=== PATIENT | male | born 1960 | race Caucasian/White ===

== ENCOUNTER 2016-12-19 09:50 | Inpatient (IN) | payer BC ==
[~2016-12-19] VITALS: Ht 193 cm; Wt 85.7 kg
[2016-12-19 09:50] VITALS: BP_SYST 163
[2016-12-19] MEDS ORDERED: NS 500 ML IV SCH (09:59)
[2016-12-19] MEDS ORDERED: IPRATROPIUM/ALBUTEROL SULFATE 3 ML AMPUL.NEB ONE (10:10)
[2016-12-19 10:28] LABS: BASOPHILS # (AUTO) 0.1 K/uL (0.0-0.2); BASOPHILS % (AUTO) 1.1 % (0.0-2.0); EOSINOPHILS # (AUTO) 1.9 K/uL (0.0-0.4); EOSINOPHILS % (AUTO) 17.7 % (0.0-4.0); HEMATOCRIT 44.6 % (36-54); HEMOGLOBIN 14.1 g/dL (14.0-18.0); LYMPHOCYTES # (AUTO) 1.8 K/uL (1.0-5.5); LYMPHOCYTES % (AUTO) 16.4 % (20.5-51.5); MEAN CORPUSCULAR HEMOGLOBIN 29 pg (27-31); MEAN CORPUSCULAR HGB CONC 32 % (32-36); MEAN CORPUSCULAR VOLUME 91 fL (79.0-98.0); MONOCYTES # (AUTO) 0.8 K/uL (0.0-1.0); MONOCYTES % (AUTO) 7.2 % (1.7-9.3); NEUTROPHILS # (AUTO) 6.1 K/uL (1.8-7.7); NEUTROPHILS % (AUTO) 57.6 % (40.0-70.0); PLATELET COUNT (AUTO) 235 K/uL (130-430); RED BLOOD CELL COUNT(AUTO) 4.93 MIL/uL (4.2-6.2); RED CELL DISTRIBUTION WIDTH 13.2 % (9.0-15.0); WHITE BLOOD COUNT (AUTO) 10.7 K/uL (4.8-10.8)
[2016-12-19 10:33] LABS: CALCIUM 9.7 mg/dL (8.4-11.0); CREATININE 0.97 mg/dL (0.55-1.30); POTASSIUM 4.8 mmol/L (3.5-5.1)
[2016-12-19 10:45] LABS: ALBUMIN 3.6 g/dL (3.4-4.8); TOTAL BILIRUBIN 0.7 mg/dL (0.0-1.0)
[2016-12-19 11:48] LABS: BILIRUBIN,URINE 1+ (NEGATIVE); BLOOD, URINE TRACE (NEGATIVE); CLARITY/URINE CLEAR (CLEAR); COLOR,URINE YELLOW (YELLOW); GLUCOSE,URINE NEGATIVE (NEGATIVE); KETONES,URINE TRACE (NEGATIVE); LEUKOCYTE ESTERASE ,URINE NEGATIVE (NEGATIVE); NITRITE, URINE NEGATIVE (NEGATIVE); PROTEIN URINE 2+ (NEGATIVE)
[2016-12-19 11:52] LABS: BACTERIA,URINE RARE /HPF (None Seen); RBC,URINE 0-3 /HPF (0-3); WBC,URINE 0-3 /HPF (0-3)
[2016-12-19] MEDS ORDERED: ALBUTEROL SULFATE 0.083% 2.5 MG/3 ML VIAL.NEB INH PRN (12:30)
[2016-12-19] MEDS ORDERED: IPRATROPIUM BROM 0.5 MG/2.5 ML VIAL.NEB (ATROVENT) INH PRN (12:30)
[2016-12-19 13:13] VITALS: BP_SYST 136
[2016-12-19 13:15] VITALS: BP_SYST 136
[2016-12-19] MEDS ORDERED: methylPREDNISolone SOD SUCC/PF 62.5 MG/ML VIAL IVP ONE (13:15)
[2016-12-19] MEDS: ALBUTEROL SULFATE 0.083% 2.5 MG/3 ML VIAL.NEB INH SCH ×3 (15:21→23:08)
[2016-12-19] MEDS: IPRATROPIUM BROM 0.5 MG/2.5 ML VIAL.NEB (ATROVENT) INH SCH ×3 (15:21→23:08)
[2016-12-19 16:18] VITALS: BP_SYST 147
[2016-12-19 19:38] VITALS: BP_SYST 142
[2016-12-19] MEDS: methylPREDNISolone SOD SUCC/PF 62.5 MG/ML VIAL IVP SCH (21:12)
[2016-12-19 23:30] VITALS: BP_SYST 125
[2016-12-20] VITALS (8 sets, daily range): BP systolic 128–155
[2016-12-20] MEDS: ALBUTEROL SULFATE 0.083% 2.5 MG/3 ML VIAL.NEB INH SCH ×6 (03:27→23:27)
[2016-12-20] MEDS: IPRATROPIUM BROM 0.5 MG/2.5 ML VIAL.NEB (ATROVENT) INH SCH ×6 (03:27→23:27)
[2016-12-20] MEDS: methylPREDNISolone SOD SUCC/PF 62.5 MG/ML VIAL IVP SCH ×3 (05:38→22:17)
[2016-12-20 06:49] LABS: BASOPHILS % (AUTO) 0.2 % (0.0-2.0); EOSINOPHILS % (AUTO) 0.1 % (0.0-4.0); HEMATOCRIT 41.3 % (36-54); HEMOGLOBIN 13.2 g/dL (14.0-18.0); LYMPHOCYTES # (AUTO) 0.5 K/uL (1.0-5.5); LYMPHOCYTES % (AUTO) 9.3 % (20.5-51.5); MEAN CORPUSCULAR HEMOGLOBIN 29 pg (27-31); MEAN CORPUSCULAR HGB CONC 32 % (32-36); MEAN CORPUSCULAR VOLUME 91 fL (79.0-98.0); MONOCYTES # (AUTO) 0.1 K/uL (0.0-1.0); NEUTROPHILS # (AUTO) 5.1 K/uL (1.8-7.7); NEUTROPHILS % (AUTO) 89.4 % (40.0-70.0); PLATELET COUNT (AUTO) 210 K/uL (130-430); RED BLOOD CELL COUNT(AUTO) 4.54 MIL/uL (4.2-6.2); RED CELL DISTRIBUTION WIDTH 13.1 % (9.0-15.0)
[2016-12-20 06:51] LABS: CALCIUM 9.6 mg/dL (8.4-11.0); CREATININE 0.83 mg/dL (0.55-1.30); POTASSIUM 4.9 mmol/L (3.5-5.1); TOTAL BILIRUBIN 0.4 mg/dL (0.0-1.0)
[2016-12-20 07:05] LABS: WHITE BLOOD COUNT (AUTO) 5.7 K/uL (4.8-10.8)
[2016-12-20] MEDS: LEVOFLOXACIN 500 MG/D5W 100 ML IV SCH (11:08)
[2016-12-21] MEDS: ALBUTEROL SULFATE 0.083% 2.5 MG/3 ML VIAL.NEB INH SCH ×6 (03:43→23:12)
[2016-12-21] MEDS: IPRATROPIUM BROM 0.5 MG/2.5 ML VIAL.NEB (ATROVENT) INH SCH ×6 (03:43→23:11)
[2016-12-21 04:35] VITALS: BP_SYST 124
[2016-12-21] MEDS: methylPREDNISolone SOD SUCC/PF 62.5 MG/ML VIAL IVP SCH ×3 (05:57→23:05)
[2016-12-21 08:00] VITALS: BP_SYST 136
[2016-12-21] MEDS: FLUTICASONE/VILANTEROL 1 EACH BLST.W.DEV INH SCH (11:15)
[2016-12-21 12:32] VITALS: BP_SYST 131
[2016-12-21] MEDS: LEVOFLOXACIN 500 MG/D5W 100 ML IV SCH (12:41)
[2016-12-21 16:34] VITALS: BP_SYST 124
[2016-12-21] MEDS: MONTELUKAST 10 MG TABLET PO SCH (17:45)
[2016-12-21 21:10] VITALS: BP_SYST 127
[2016-12-21 21:11] VITALS: BP_SYST 127
[2016-12-22] VITALS (7 sets, daily range): BP systolic 115–138
[2016-12-22] MEDS: ALBUTEROL SULFATE 0.083% 2.5 MG/3 ML VIAL.NEB INH SCH ×5 (03:10→19:41)
[2016-12-22] MEDS: IPRATROPIUM BROM 0.5 MG/2.5 ML VIAL.NEB (ATROVENT) INH SCH ×5 (03:10→19:41)
[2016-12-22] MEDS: methylPREDNISolone SOD SUCC/PF 62.5 MG/ML VIAL IVP SCH (05:46)
[2016-12-22] MEDS: FLUTICASONE/VILANTEROL 1 EACH BLST.W.DEV INH SCH (08:44)
[2016-12-22] MEDS: LEVOFLOXACIN 500 MG/D5W 100 ML IV SCH (11:48)
[2016-12-22] MEDS: MONTELUKAST 10 MG TABLET PO SCH (18:20)
[2016-12-22] MEDS: methylPREDNISolone SOD SUCC 40 MG/ML VIAL IVP SCH (21:02)
[2016-12-23 00:13] VITALS: BP_SYST 118
[2016-12-23] MEDS: ALBUTEROL SULFATE 0.083% 2.5 MG/3 ML VIAL.NEB INH SCH ×4 (00:26→16:35)
[2016-12-23] MEDS: IPRATROPIUM BROM 0.5 MG/2.5 ML VIAL.NEB (ATROVENT) INH SCH ×4 (00:26→16:35)
[2016-12-23 04:08] VITALS: BP_SYST 122
[2016-12-23 08:00] VITALS: BP_SYST 133
[2016-12-23] MEDS: methylPREDNISolone SOD SUCC 40 MG/ML VIAL IVP SCH (08:52)
[2016-12-23] MEDS: FLUTICASONE/VILANTEROL 1 EACH BLST.W.DEV INH SCH (08:52)
[2016-12-23 11:07] VITALS: BP_SYST 130
[2016-12-23] MEDS: LEVOFLOXACIN 500 MG/D5W 100 ML IV SCH (11:22)
[2016-12-23 11:57] VITALS: BP_SYST 130
[2016-12-23 12:18] VITALS: BP_SYST 131
[2016-12-23 14:11] LABS: IMMUNOGLOBULIN G, SERUM 1690 mg/dL (700-1600)
[2016-12-23 14:12] LABS: IMMUNOGLOBULIN E,TOTAL 1991 IU/mL (0-100)
== END 2016-12-23 12:57 | disposition home or self-care (01) | DRG 193 ==
LOC: SED 09:50 → STU 11:50 → SMU 12-20 10:23
PROVIDERS: ADMIT Internal Medicine Hospice and Palliative Medicine; ATTEND Internal Medicine Hospice and Palliative Medicine
DX: J18.9 Pneumonia, unspecified organism (principal); J96.01 Acute respiratory failure with hypoxia; J45.901 Unspecified asthma with (acute) exacerbation; Z88.0 Allergy status to penicillin
CPT/HCPCS: 36415; 36600; 71010; 71250-TC; 80053; 81000-TC; 82784; 82785; 82803-TC; 83605; 84484; 85025; 87070-TC; 87081; 87205-TC; 93005; 94640; 94760; 96365; 99285; J1030; J1956; J2930; J7040

== ENCOUNTER 2017-01-26 16:36 | Outpatient (CLI) | payer BC | END 2017-01-26 19:26 | disposition home or self-care (01) | LOC: SRD 16:36 | PROVIDERS: ATTEND Specialist | DX: J18.9 Pneumonia, unspecified organism (principal); J44.9 Chronic obstructive pulmonary disease, unspecified | CPT/HCPCS: 71020-TC ==

== ENCOUNTER 2017-03-10 09:36 | Outpatient (CLI) | payer BC | END 2017-03-10 19:35 | disposition home or self-care (01) | LOC: SCT 09:36 | PROVIDERS: ATTEND Specialist | DX: J18.9 Pneumonia, unspecified organism (principal); J47.0 Bronchiectasis with acute lower respiratory infection | CPT/HCPCS: 71250-TC ==

== ENCOUNTER 2020-01-05 06:57 | Emergency (ER) | payer BC ==
[~2020-01-05] VITALS: Ht 182.9 cm; Wt 90.7 kg
[2020-01-05 07:00] VITALS: BP_SYST 141
--- NOTE | 2020-01-05 07:00 | NUR ---
BROUGHT BACK TO BED #5 VIA WHEELCHAIR, PLACED IN ROOM, REPORT GIVEN TO ASHLEIGH
--- NOTE | 2020-01-05 07:10 | NUR ---
pt arrvies from home after throwing out is back last night. Pt reports doing a twisting motion when he felt a stabbing like pain on his lower back. No other c/o at the moment
[2020-01-05] MEDS ORDERED: methocarbamoL 500 MG TABLET PO ONE (07:15)
[2020-01-05] MEDS ORDERED: KETOROLAC TROMETHAMINE 60 MG/2 ML VIAL IM ONE (07:15)
--- NOTE | 2020-01-05 07:18 | NUR ---
ER at bedside examining patient.
--- NOTE | 2020-01-05 07:24 | NUR ---
Medicated the pt w/ Toradol and Robaxin. Will reassess
--- NOTE | 2020-01-05 07:30 | NUR ---
Patient given written and verbal discharge instructions and verbalizes understanding. ER MD discussed with patient the results and treatment provided. Patient in stable condition. ID arm band removed. Rx of Ibuprofen and Methocardamol given. Patient educated on pain management and to follow up with PMD. Pain Scale 3/10. Opportunity for questions provided and answered. Medication side effect fact sheet provided.
[2020-01-05 07:32] VITALS: BP_SYST 141
== END 2020-01-05 07:30 | disposition home or self-care (01) ==
LOC: SED 06:57
DX: S33.5XXA Sprain of ligaments of lumbar spine, initial encounter (principal); J44.9 Chronic obstructive pulmonary disease, unspecified; Z88.0 Allergy status to penicillin; X50.1XXA Overexertion from prolonged static or awkward postures, initial encounter; Y93.89 Activity, other specified; Y92.89 Other specified places as the place of occurrence of the external cause; Y99.8 Other external cause status
CPT/HCPCS: 99283; J1885

== ENCOUNTER 2020-05-08 15:58 | Inpatient (IN) | payer BC, SELFPAY ==
[~2020-05-08] VITALS: Ht 182.9 cm; Wt 84.8 kg
[2020-05-08] MEDS: POTASSIUM CHLORIDE 20 MEQ in D5/0.45 NS 1,000 ML IV SCH ×2
[~2020-05-08 15:58] MED LIST: VANCOMYCIN HCL 1,500 MG in NS 250 ML IV ONE
[2020-05-08 16:05] VITALS: BP_SYST 117
[2020-05-08] MEDS ORDERED: VANCOMYCIN HCL 1,000 MG in NS 250 ML IV ONE (16:30)
[2020-05-08] MEDS ORDERED: DEXAMETHASONE SOD PHOSPHATE 10 MG/ML VIAL IVP ONE (16:30)
[2020-05-08] MEDS ORDERED: VANCOMYCIN HCL 1000 MG/VIAL IV ONE (17:20)
[2020-05-08 17:39] LABS: BASOPHILS % (AUTO) 0.5 % (0.0-2.0); EOSINOPHILS # (AUTO) 0.4 K/uL (0.0-0.4); EOSINOPHILS % (AUTO) 6.1 % (0.0-4.0); HEMATOCRIT 42.4 % (36-54); HEMOGLOBIN 14.2 g/dL (14.0-18.0); LYMPHOCYTES # (AUTO) 0.6 K/uL (1.0-5.5); LYMPHOCYTES % (AUTO) 8.2 % (20.5-51.5); MEAN CORPUSCULAR HEMOGLOBIN 30 pg (27-31); MEAN CORPUSCULAR HGB CONC 34 % (32-36); MEAN CORPUSCULAR VOLUME 90 fL (79.0-98.0); MONOCYTES # (AUTO) 0.4 K/uL (0.0-1.0); MONOCYTES % (AUTO) 5.7 % (1.7-9.3); NEUTROPHILS # (AUTO) 5.8 K/uL (1.8-7.7); NEUTROPHILS % (AUTO) 79.5 % (40.0-70.0); PLATELET COUNT (AUTO) 208 K/uL (130-430); RED BLOOD CELL COUNT(AUTO) 4.73 MIL/uL (4.2-6.2); RED CELL DISTRIBUTION WIDTH 13.4 % (9.0-15.0); WHITE BLOOD COUNT (AUTO) 7.3 K/uL (4.8-10.8)
[2020-05-08 17:43] LABS: CALCIUM 9.2 mg/dL (8.4-11.0); CREATININE 0.9 mg/dL (0.55-1.30); POTASSIUM 4.6 mmol/L (3.5-5.1)
[2020-05-08 17:49] LABS: TOTAL BILIRUBIN 0.4 mg/dL (0.0-1.0)
[2020-05-08 20:10] VITALS: BP_SYST 130
[2020-05-08] MEDS ORDERED: CARV25TA55 PO (20:21)
[2020-05-08] MEDS ORDERED: BUDE6HFA INH (20:21)
[2020-05-08] MEDS ORDERED: FURO-150 PO (20:21)
[2020-05-08] MEDS ORDERED: ACETAMINOPHEN 325 MG TABLET PO PRN (22:00)
[2020-05-08] MEDS ORDERED: ALBUTEROL MDI INHALATION 8 GM INH INH PRN (22:15)
[2020-05-09] MEDS ORDERED: KCL 20 mEq in D5/0.45NS 1000mL 1,000 ML IV ONE (00:25)
[2020-05-09] MEDS ORDERED: AZITHROMYCIN 500 MG/VIAL (ZITHROMAX) IV ONE (00:57)
[2020-05-09] MEDS ORDERED: MORPHINE 2 MG/ML INJ. SYRINGE ONE (00:58)
[2020-05-09] MEDS ORDERED: ALBUTEROL SULFATE 0.083% 2.5 MG/3 ML VIAL.NEB INH SCH (01:00)
[2020-05-09 04:09] VITALS: BP_SYST 130
[2020-05-09 04:19] VITALS: BP_SYST 133
[2020-05-09] MEDS ORDERED: BUDESONIDE 0.5 MG/2 ML AMPUL.NEB INH SCH (07:00)
[2020-05-09 07:38] LABS: BASOPHILS % (AUTO) 0.5 % (0.0-2.0); HEMOGLOBIN 14.4 g/dL (14.0-18.0); LYMPHOCYTES # (AUTO) 0.6 K/uL (1.0-5.5); MEAN CORPUSCULAR HEMOGLOBIN 30 pg (27-31); MEAN CORPUSCULAR HGB CONC 33 % (32-36); MEAN CORPUSCULAR VOLUME 91 fL (79.0-98.0); MONOCYTES # (AUTO) 0.1 K/uL (0.0-1.0); MONOCYTES % (AUTO) 1.5 % (1.7-9.3); NEUTROPHILS # (AUTO) 3.6 K/uL (1.8-7.7); PLATELET COUNT (AUTO) 190 K/uL (130-430); RED BLOOD CELL COUNT(AUTO) 4.83 MIL/uL (4.2-6.2); RED CELL DISTRIBUTION WIDTH 13.5 % (9.0-15.0); WHITE BLOOD COUNT (AUTO) 4.3 K/uL (4.8-10.8)
[2020-05-09 07:57] LABS: CALCIUM 9.3 mg/dL (8.4-11.0); CREATININE 0.71 mg/dL (0.55-1.30); POTASSIUM 5.1 mmol/L (3.5-5.1)
[2020-05-09 08:00] VITALS: BP_SYST 117
[2020-05-09] MEDS: POTASSIUM CHLORIDE 20 MEQ in D5/0.45 NS 1,000 ML IV SCH ×4 (08:13→21:41)
[2020-05-09 08:44] LABS: C-REACTIVE PROTEIN QUANT 6.4 mg/dL (0-0.5)
[2020-05-09] MEDS: CHOLECALCIFEROL (VITAMIN D3) 5,000 UNIT TABLET PO SCH (09:00)
[2020-05-09] MEDS ORDERED: BUDESONIDE/FORMOTEROL 160-4.5 mCg, 6 GM INHALER INH SCH (09:00)
[2020-05-09] MEDS: ASCORBIC ACID 500 MG TABLET PO SCH (10:33)
[2020-05-09] MEDS: CARVEDILOL 25 MG TABLET (COREG) PO SCH ×2 (10:33→21:15)
[2020-05-09] MEDS: ENOXAPARIN SODIUM 40 MG/0.4 ML SYRINGE SUBCUT SCH ×3 (10:34→21:00)
[2020-05-09] MEDS: ALBUTEROL MDI INHALATION 8 GM INH INH SCH ×2 (12:00→19:35)
[2020-05-09] MEDS ORDERED: ALBUTEROL MDI INHALATION 8 GM INH INH SCH (13:00)
[2020-05-09 13:01] VITALS: BP_SYST 108
[2020-05-09] MEDS: VANCOMYCIN HCL 1,000 MG in NS 250 ML IV SCH ×2 (13:22→23:00)
[2020-05-09 16:25] VITALS: BP_SYST 113
[2020-05-09] MEDS ORDERED: BUDESONIDE 0.5 MG/2 ML AMPUL.NEB INH PRN (19:00)
[2020-05-09 20:00] VITALS: BP_SYST 134
[2020-05-09] MEDS: DEXAMETHASONE SOD PHOSPHATE 10 MG/ML VIAL IVP SCH ×2 (21:15)
[2020-05-09] MEDS: AZITHROMYCIN 500 MG in NS 250 ML IV SCH ×3 (21:15)
[2020-05-10] VITALS: BP_SYST 107
[2020-05-10] MEDS: VANCOMYCIN HCL 1,000 MG in NS 250 ML IV SCH (06:10)
[2020-05-10] MEDS: ALBUTEROL MDI INHALATION 8 GM INH INH SCH ×3 (07:20→19:25)
[2020-05-10 07:58] LABS: BASOPHILS % (AUTO) 0.1 % (0.0-2.0); HEMATOCRIT 43.2 % (36-54); LYMPHOCYTES # (AUTO) 0.7 K/uL (1.0-5.5); LYMPHOCYTES % (AUTO) 8.6 % (20.5-51.5); MEAN CORPUSCULAR HEMOGLOBIN 30 pg (27-31); MEAN CORPUSCULAR HGB CONC 33 % (32-36); MEAN CORPUSCULAR VOLUME 92 fL (79.0-98.0); MONOCYTES # (AUTO) 0.2 K/uL (0.0-1.0); MONOCYTES % (AUTO) 2.2 % (1.7-9.3); NEUTROPHILS # (AUTO) 7.4 K/uL (1.8-7.7); NEUTROPHILS % (AUTO) 89.1 % (40.0-70.0); PLATELET COUNT (AUTO) 206 K/uL (130-430); RED BLOOD CELL COUNT(AUTO) 4.68 MIL/uL (4.2-6.2); RED CELL DISTRIBUTION WIDTH 13.7 % (9.0-15.0); WHITE BLOOD COUNT (AUTO) 8.3 K/uL (4.8-10.8)
[2020-05-10 08:28] LABS: ALBUMIN 2.6 g/dL (3.4-4.8); CREATININE 0.73 mg/dL (0.55-1.30); POTASSIUM 5.2 mmol/L (3.5-5.1); TOTAL BILIRUBIN 0.3 mg/dL (0.0-1.0)
[2020-05-10 08:45] VITALS: BP_SYST 132
[2020-05-10] MEDS ORDERED: FAMOTIDINE 20 MG TABLET ONE ×2 (09:07→21:40)
[2020-05-10] MEDS: ENOXAPARIN SODIUM 40 MG/0.4 ML SYRINGE SUBCUT SCH ×2 (09:08→21:45)
[2020-05-10] MEDS: CARVEDILOL 25 MG TABLET (COREG) PO SCH ×2 (09:09→21:45)
[2020-05-10] MEDS: ASCORBIC ACID 500 MG TABLET PO SCH (09:09)
[2020-05-10] MEDS: FAMOTIDINE 20 MG TABLET PO SCH ×2 (09:09→21:45)
[2020-05-10] MEDS: CHOLECALCIFEROL (VITAMIN D3) 5,000 UNIT TABLET PO SCH (09:10)
[2020-05-10] MEDS: AZITHROMYCIN 500 MG in D5W 250 ML IV SCH (12:24)
[2020-05-10] MEDS: NACL 0.9% 1,000 ML IV SCH (13:00)
[2020-05-10] MEDS: VANCOMYCIN HCL 1,000 MG in D5W 250 ML IV SCH ×2 (13:00→21:45)
[2020-05-10 18:18] VITALS: BP_SYST 113
[2020-05-10 20:00] VITALS: BP_SYST 132
[2020-05-10] MEDS: DEXAMETHASONE SOD PHOSPHATE 10 MG/ML VIAL IVP SCH (21:45)
[2020-05-11] VITALS: BP_SYST 127
[2020-05-11] MEDS: ALBUTEROL MDI INHALATION 8 GM INH INH SCH ×4 (01:46→19:35)
[2020-05-11] MEDS: NACL 0.9% 1,000 ML IV SCH ×2 (02:10→21:00)
[2020-05-11] MEDS: VANCOMYCIN HCL 1,000 MG in D5W 250 ML IV SCH (06:08)
[2020-05-11 08:15] VITALS: BP_SYST 129
[2020-05-11] MEDS: ASCORBIC ACID 500 MG TABLET PO SCH (09:27)
[2020-05-11] MEDS: CHOLECALCIFEROL (VITAMIN D3) 5,000 UNIT TABLET PO SCH (09:27)
[2020-05-11] MEDS: CARVEDILOL 25 MG TABLET (COREG) PO SCH ×2 (09:27→21:00)
[2020-05-11] MEDS: ENOXAPARIN SODIUM 40 MG/0.4 ML SYRINGE SUBCUT SCH ×2 (09:28→21:00)
[2020-05-11 09:29] LABS: ALBUMIN 2.7 g/dL (3.4-4.8); CALCIUM 9.5 mg/dL (8.4-11.0); CREATININE 0.79 mg/dL (0.55-1.30); POTASSIUM 5.1 mmol/L (3.5-5.1); TOTAL BILIRUBIN 0.3 mg/dL (0.0-1.0)
[2020-05-11] MEDS: FAMOTIDINE 20 MG TABLET PO SCH ×2 (09:29→21:00)
[2020-05-11] MEDS ORDERED: FAMOTIDINE 20 MG TABLET ONE ×2 (09:30→20:56)
[2020-05-11] MEDS ORDERED: IVERMECTIN 3 MG TABLET PO ONE (09:45)
[2020-05-11] MEDS: AZITHROMYCIN 500 MG in D5W 250 ML IV SCH (13:30)
[2020-05-11 13:55] LABS: BASOPHILS % (AUTO) 0.1 % (0.0-2.0); HEMATOCRIT 44.3 % (36-54); HEMOGLOBIN 14.1 g/dL (14.0-18.0); LYMPHOCYTES # (AUTO) 0.7 K/uL (1.0-5.5); LYMPHOCYTES % (AUTO) 9.5 % (20.5-51.5); MEAN CORPUSCULAR HEMOGLOBIN 30 pg (27-31); MEAN CORPUSCULAR HGB CONC 32 % (32-36); MEAN CORPUSCULAR VOLUME 93 fL (79.0-98.0); MONOCYTES # (AUTO) 0.1 K/uL (0.0-1.0); MONOCYTES % (AUTO) 1.9 % (1.7-9.3); NEUTROPHILS # (AUTO) 6.5 K/uL (1.8-7.7); NEUTROPHILS % (AUTO) 88.5 % (40.0-70.0); PLATELET COUNT (AUTO) 179 K/uL (130-430); RED BLOOD CELL COUNT(AUTO) 4.77 MIL/uL (4.2-6.2); RED CELL DISTRIBUTION WIDTH 13.7 % (9.0-15.0); WHITE BLOOD COUNT (AUTO) 7.3 K/uL (4.8-10.8)
[2020-05-11 20:00] VITALS: BP_SYST 135
[2020-05-11] MEDS: CEFEPIME 0.5 GM in D5W 50 ML IV SCH (21:00)
[2020-05-11] MEDS: DEXAMETHASONE SOD PHOSPHATE 10 MG/ML VIAL IVP SCH (22:00)
[2020-05-12] VITALS: BP_SYST 129
[2020-05-12] MEDS: ALBUTEROL MDI INHALATION 8 GM INH INH SCH ×4 (01:00→19:30)
[2020-05-12] MEDS: NACL 0.9% 1,000 ML IV SCH ×2 (04:00→11:34)
[2020-05-12] MEDS: CEFEPIME 0.5 GM in D5W 50 ML IV SCH ×2 (08:45→21:08)
[2020-05-12] MEDS: CHOLECALCIFEROL (VITAMIN D3) 5,000 UNIT TABLET PO SCH (08:46)
[2020-05-12] MEDS: ENOXAPARIN SODIUM 40 MG/0.4 ML SYRINGE SUBCUT SCH ×2 (08:46→21:09)
[2020-05-12] MEDS: ASCORBIC ACID 500 MG TABLET PO SCH (08:46)
[2020-05-12] MEDS: FAMOTIDINE 20 MG TABLET PO SCH ×2 (08:46→21:09)
[2020-05-12] MEDS: CARVEDILOL 25 MG TABLET (COREG) PO SCH ×2 (08:46→21:11)
[2020-05-12 09:39] VITALS: BP_SYST 137
[2020-05-12] MEDS: AZITHROMYCIN 500 MG in D5W 250 ML IV SCH (11:34)
[2020-05-12 12:00] VITALS: BP_SYST 126
[2020-05-12 16:35] VITALS: BP_SYST 119
[2020-05-12 19:58] VITALS: BP_SYST 133
[2020-05-12] MEDS ORDERED: FAMOTIDINE 20 MG TABLET ONE (20:59)
[2020-05-12] MEDS: DEXAMETHASONE SOD PHOSPHATE 10 MG/ML VIAL IVP SCH (21:09)
[2020-05-13] MEDS: ALBUTEROL MDI INHALATION 8 GM INH INH SCH (01:00)
[2020-05-13] MEDS: NACL 0.9% 1,000 ML IV SCH (05:45)
[2020-05-13] MEDS: CHOLECALCIFEROL (VITAMIN D3) 5,000 UNIT TABLET PO SCH (08:00)
[2020-05-13] MEDS: FAMOTIDINE 20 MG TABLET PO SCH (08:00)
[2020-05-13] MEDS: CARVEDILOL 25 MG TABLET (COREG) PO SCH (08:00)
[2020-05-13] MEDS: ENOXAPARIN SODIUM 40 MG/0.4 ML SYRINGE SUBCUT SCH (08:00)
[2020-05-13] MEDS: ASCORBIC ACID 500 MG TABLET PO SCH (08:00)
[2020-05-13] MEDS: CEFEPIME 0.5 GM in D5W 50 ML IV SCH (08:00)
[2020-05-13] MEDS ORDERED: FAMOTIDINE 20 MG TABLET ONE (08:19)
[2020-05-13 08:37] VITALS: BP_SYST 145
[2020-05-13 11:47] VITALS: BP_SYST 136
[2020-05-13] MEDS: AZITHROMYCIN 500 MG in D5W 250 ML IV SCH (11:47)
[2020-05-13] MEDS ORDERED: DEC4 PO (13:47)
[2020-05-13] MEDS ORDERED: DOXY100T2 PO (13:47)
[2020-05-13] MEDS ORDERED: APIX2.5T PO (13:48)
[2020-05-13] MEDS ORDERED: ZINC220T4 PO (13:49)
[2020-05-13] MEDS ORDERED: Vitamin D PO (13:49)
[2020-05-13 16:36] VITALS: BP_SYST 140
[2020-05-13 20:00] VITALS: BP_SYST 134
[2020-05-13 21:37] VITALS: BP_SYST 134
== END 2020-05-13 19:14 | disposition home or self-care (01) | DRG 177 ==
LOC: SED 15:58 → SMU 18:33
PROVIDERS: ADMIT Family Medicine; ATTEND Family Medicine
DX: U07.1 COVID-19 (principal); J12.82 Pneumonia due to coronavirus disease 2019; J96.01 Acute respiratory failure with hypoxia; D72.810 Lymphocytopenia; I10 Essential (primary) hypertension; J45.909 Unspecified asthma, uncomplicated; Z88.0 Allergy status to penicillin
CPT/HCPCS: 36415; 36600; 71045; 80048; 80053; 80202-TC; 82803-TC; 83880; 84484; 85025; 85379; 86140; 86900; 86901; 93005; 94640; 94664; 94760; J0456; J0692; J1100; J1650; J2270; J3370; J3480; J7030; J7050; J7060

== ENCOUNTER 2023-02-13 17:20 | Emergency (ER) | payer BC ==
[~2023-02-13] VITALS: Ht 182.9 cm; Wt 90.7 kg
[~2023-02-13 17:20] MED LIST changes: +APIX2.5T PO; +BUDE6HFA INH; +CARV25TA55 PO; +DEC4 PO; +DOXY100T2 PO; +FURO-150 PO; -VANCOMYCIN HCL 1,500 MG in NS 250 ML IV ONE; +Vitamin D PO; +ZINC220T4 PO
[2023-02-13 17:22] VITALS: BP_SYST 163; PULSE 92; RESP 24; TEMP 97.5; O2SAT 90
[2023-02-13] MEDS ORDERED: methylPREDNISolone SOD SUCC/PF 62.5 MG/ML VIAL IVP ONE (18:45)
[2023-02-13] MEDS ORDERED: IPRATROPIUM/ALBUTEROL SULFATE 3 ML AMPUL.NEB (DUONEB) INH ONE (18:45)
[2023-02-13 19:26] LABS: BASOPHILS % (AUTO) 0.6 % (0.0-2.0); EOSINOPHILS # (AUTO) 0.3 K/uL (0.0-0.4); HEMATOCRIT 37.1 % (36-54); HEMOGLOBIN 11.7 g/dL (14.0-18.0); LYMPHOCYTES % (AUTO) 15.5 % (20.5-51.5); MEAN CORPUSCULAR HEMOGLOBIN 30 pg (27-31); MEAN CORPUSCULAR HGB CONC 32 % (32-36); MEAN CORPUSCULAR VOLUME 94 fL (79.0-98.0); MONOCYTES # (AUTO) 0.4 K/uL (0.0-1.0); MONOCYTES % (AUTO) 6.3 % (1.7-9.3); NEUTROPHILS # (AUTO) 4.8 K/uL (1.8-7.7); NEUTROPHILS % (AUTO) 72.6 % (40.0-70.0); PLATELET COUNT (AUTO) 175 K/uL (130-430); RED BLOOD CELL COUNT(AUTO) 3.97 MIL/uL (4.2-6.2); RED CELL DISTRIBUTION WIDTH 13.6 % (9.0-15.0); WHITE BLOOD COUNT (AUTO) 6.6 K/uL (4.8-10.8)
[2023-02-13 20:02] LABS: CALCIUM 9.3 mg/dL (8.4-11.0); CREATININE 0.83 mg/dL (0.55-1.30); POTASSIUM 4.7 mmol/L (3.5-5.1)
[2023-02-13 20:06] LABS: ALBUMIN 3.1 g/dL (3.4-4.8); TOTAL BILIRUBIN 0.5 mg/dL (0.0-1.0); TOTAL PROTEIN, SERUM 7.2 g/dL (6.4-8.3)
[2023-02-13] MEDS ORDERED: METH-776 PO (21:42)
[2023-02-13] MEDS ORDERED: CEFU250T85 PO (21:42)
[2023-02-13] MEDS ORDERED: ALBU2.5V7 INH (21:42)
[2023-02-13 21:57] VITALS: BP_SYST 129; PULSE 71; RESP 22; TEMP 98.6; O2SAT 91
== END 2023-02-13 21:57 | disposition home or self-care (01) ==
LOC: SED 17:20
DX: J44.1 Chronic obstructive pulmonary disease with (acute) exacerbation (principal); R06.02 Shortness of breath; Z88.0 Allergy status to penicillin; Z79.899 Other long term (current) drug therapy; Z20.822 Contact with and (suspected) exposure to COVID-19
CPT/HCPCS: 99285; 96374; 71045; 87426; 80053; 83880; 85025; 84484; 36415; 93005; 94640; J2930